=== PATIENT | female | born 1995 | race Two or more races ===

== ENCOUNTER 2024-08-25 17:26 | Emergency (ER) | payer OTHER ==
[~2024-08-25] VITALS: Ht 175.3 cm; Wt 120.2 kg
[2024-08-25 17:44] VITALS: BP 136/85; O2SAT 100
[2024-08-25] MEDS ORDERED: KETOROLAC TROMETHAMINE 60 MG VIAL IM STA (20:01)
[2024-08-25 20:40] LABS: PH,URINE 6.5 (5.0-8.0); URINE APPEARANCE Cloudy; URINE BILIRRUBIN Negative (NEGATIVE); URINE BLOOD Large; URINE COLOR Yellow; URINE GLUCOSE Negative (NEGATIVE); URINE KETONE Trace (NEGATIVE); URINE LEUKOCYTE Moderate; URINE NITRATE Negative
[2024-08-25 20:41] LABS: URINE BACTERIA 2222.5 uL (0.0-1933); URINE EPITHELIAL CELLS 4.4 uL (0.0-38.8); URINE RBC 2011.7 uL (0.0-20.8); URINE WBC 3758.9 uL (0.0-23.2)
[2024-08-25 20:45] LABS: URINE PROTEIN 100 (NEGATIVE)
== END 2024-08-25 21:04 | disposition home or self-care (01) ==
LOC: ER 17:28
DX: R30.0 Dysuria (principal); N39.0 Urinary tract infection, site not specified

== ENCOUNTER 2024-08-29 12:40 | Emergency (ER) | payer OTHER ==
[~2024-08-29] VITALS: Ht 175.3 cm; Wt 120.2 kg
[2024-08-29] MEDS ORDERED: CEPHALEXIN500 MG PO (13:31)
[2024-08-29] MEDS ORDERED: FAMOtidine 10 MG/ML (4ML VIAL) IV ONE (14:00)
[2024-08-29] MEDS ORDERED: ONDANSETRON HCL 2 MG/ML VIAL IV ONE (14:00)
[2024-08-29] MEDS ORDERED: 0.9 % SODIUM CHLORIDE 1,000 ML IV ONE (14:00)
[2024-08-29 14:18] LABS: HEMOGLOBIN 15.3 g/dL (12.0-15.00); MEAN CELL VOLUME 92.7 fL (80.00-100.00); MEAN CORPUSCULAR HEMOGLOBIN 32.3 pg (27.00-32.0); MEAN CORPUSCULAR HGB CONC 34.8 g/dl (32.0-36.0); PLATELET COUNT 289 K/uL (150-450); RED BLOOD COUNT 4.75 M/uL (4.00-6.00); RED CELL DISTRIBUTION WIDTH 13.5 % (11.5-14.5)
[2024-08-29 14:33] LABS: PH,URINE 5.5 (5.0-8.0); URINE APPEARANCE Clear; URINE BILIRRUBIN Negative (NEGATIVE); URINE BLOOD Negative; URINE COLOR Yellow; URINE GLUCOSE Negative (NEGATIVE); URINE KETONE Trace (NEGATIVE); URINE LEUKOCYTE Trace; URINE NITRATE Negative; URINE PROTEIN Negative (NEGATIVE)
[2024-08-29 14:37] LABS: URINE BACTERIA 784.8 uL (0.0-1933); URINE EPITHELIAL CELLS 23.7 uL (0.0-38.8); URINE RBC 24.4 uL (0.0-20.8); URINE WBC 18.3 uL (0.0-23.2)
[2024-08-29 14:38] LABS: URINE CAST 0.91 uL (0.0-1.40)
[2024-08-29 14:44] LABS: ALKALINE PHOSPHATASE 80 U/L (50-136); ALT/SGPT 69 U/L (12-78); AMYLASE 37 U/L (25-115); ANION GAP 14 (10.0-20.0); AST/SGOT 30 U/L (15-37); BILIRUBIN TOTAL 0.56 mg/dL (0.3-1.2); BLOOD UREA NITROGEN 10 mg/dL (7-18); BUN CREA RATIO 10 (7.0-25.0); CALCIUM 9.2 mg/dL (8.5-10.1); CARBON DIOXIDE 25 mEq/L (21-32); CHLORIDE 105 mmol/L (98-107); CREATININE SERUM 0.97 mg/dL (0.55-1.02); GFR 66.98; GLOBULINA 4.2 G/DL (2.4-3.5); GLUCOSE FASTING 104 mg/dL (65-100); LIPASE 20 U/L (13-75); OSMOLALITY SERUM 279 MOSM/KG (275-295); POTASSIUM 3.97 mEq/L (3.5-5.1); SODIUM 140 mmol/L (136-145); TOTAL PROTEIN 8.2 gm/dL (6.4-8.2)
[2024-08-29 14:48] LABS: HCG QUANTITATIVE < 1 mUI/mL (1-3)
[2024-08-29] MEDS ORDERED: METRONIDAZOLE500 MG PO (14:53)
[2024-08-29] MEDS ORDERED: PEPCID AC20 MG PO (14:53)
== END 2024-08-29 15:23 | disposition home or self-care (01) ==
LOC: ER 12:41
PROVIDERS: General Practice
DX: K29.70 Gastritis, unspecified, without bleeding (principal); R11.10 Vomiting, unspecified